=== PATIENT | female | born 1975 | race Two or more races ===

== ENCOUNTER 2024-07-16 07:10 | Outpatient (CLI) | payer OTHER | END 2024-07-16 07:14 | disposition home or self-care (01) | LOC: MAMO-SONO 07:10 | DX: N63 Unspecified lump in breast (principal); N63.10 Unspecified lump in the right breast, unspecified quadrant; R92.8 Other abnormal and inconclusive findings on diagnostic imaging of breast; Z12.39 Encounter for other screening for malignant neoplasm of breast ==